=== PATIENT | female | born 1955 | race Caucasian/White ===

== ENCOUNTER 2017-11-26 15:25 | Emergency (ER) | payer OTHER ==
[~2017-11-26] VITALS: Ht 162.6 cm; Wt 106.3 kg
[~2017-11-26 15:25] MED LIST: ADVAIR 250/501 DISK IH; ASPIRIN81 M1 PO; FLEXERIL10 MG PO; HYDROCODON-ACE1 EAC7 PO; MOTRIN400 MG PO; PERCOCET 5/31 TABLET PO
[2017-11-26 16:27] LABS: HEMATOCRIT 39.5 % (36.0-46.0); HEMOGLOBIN 13.1 G/DL (11.9-15.5); MCH 28.2 PG (29.0-34.0); MCHC 33.2 G/DL (30.0-36.0); MCV 85.1 FL (83-99); PLATELET COUNT 240 K/uL (156-360); RBC DIS.WIDTH-CV 13.8 % (11.8-14.6); RBC DIS.WIDTH-SD 42.7 % (39-53); RED BLOOD COUNT 4.64 M/uL (3.80-5.20); WHITE BLOOD COUNT 13.1 K/uL (4.1-10.2)
[2017-11-26 16:35] LABS: ALBUMIN 3.9 g/dL (3.2-4.8); CHLORIDE 108 mEq/L (99-109); SODIUM 139 mEq/L (136-147)
[2017-11-26 16:38] LABS: GLUCOSE 111 mg/dL (70-99); TOTAL PROTEIN 6.6 g/dL (6.4-8.3)
[2017-11-26 16:40] LABS: TOTAL BILIRUBIN 0.9 mg/dL (0.0-1.0)
[2017-11-26 16:41] LABS: ALKALINE PHOSPHATASE 129 IU/L (3-129)
[2017-11-26 16:42] LABS: CREATININE 0.8 mg/dL (0.6-1.3); GFR ESTIMATE (CALCULATED) > 59 mL/min/
[2017-11-26 16:43] LABS: AST (GOT) 87 IU/L (2-34); UREA NITROGEN (BUN) 22 mg/dL (9-23)
[2017-11-26 16:44] LABS: ALT (GPT) 102 IU/L (3-49)
[2017-11-26 16:45] LABS: LIPASE 21 U/L (1.0-51.0)
[2017-11-26 16:50] LABS: TROP-I INTERPRETATION NEGATIVE; TROPONIN-I < 0.01 ng/mL (0.0-0.30)
[2017-11-26 18:49] LABS: TROP-I INTERPRETATION NEGATIVE; TROPONIN-I 0.01 ng/mL (0.0-0.30)
[2017-11-26] MEDS ORDERED: HYOSCYAMINE0.125 M2 PO (19:09)
[2017-11-26] MEDS ORDERED: ZOFRAN ODT4 MG PO (19:09)
[2017-11-26] MEDS ORDERED: ROXICODONE5 MG PO (19:09)
[2017-11-26 19:52] LABS: APPEARANCE SL.HAZY ((CLEAR)); BILIRUBIN NEGATIVE; BLOOD NEGATIVE; COLOR YELLOW ((YELLOW)); GLUCOSE (STRIP) NEGATIVE; KETONES NEGATIVE; LEUKOCYTES MODERATE; NITRITE NEGATIVE; PROTEIN (STRIP) NEGATIVE; SPECIFIC GRAVITY 1.023 (1.000-1.030); UROBILINOGEN 0.2 MG/DL (0.2-1.0)
[2017-11-26 20:20] VITALS: BP 123/71
[2017-11-26 20:53] LABS: BACTERIA 1+ /HPF; EPITHELIAL CELLS 1+ /HPF; MUCUS 4+ /LPF; RED BLOOD CELLS 0-5 /HPF (0-5)
== END 2017-11-26 20:21 | disposition home or self-care (01) ==
LOC: EME 15:25
PROVIDERS: Nurse Practitioner Family
DX: R10.13 Epigastric pain (principal); R07.89 Other chest pain; R11.2 Nausea with vomiting, unspecified; R19.7 Diarrhea, unspecified; J45.909 Unspecified asthma, uncomplicated; Z90.49 Acquired absence of other specified parts of digestive tract; Z96.653 Presence of artificial knee joint, bilateral; Z79.82 Long term (current) use of aspirin; Z88.5 Allergy status to narcotic agent
CPT/HCPCS: 71046; 80053; 81003; 83690; 84484; 85027; 93005; 99281; 99285; J1885; J2270; J2405